=== PATIENT | female | born 1990 | race Caucasian/White ===

== ENCOUNTER 2019-04-06 19:30 | Emergency (ER) | payer OTHER ==
[~2019-04-06] VITALS: Ht 160 cm; Wt 72.6 kg
[~2019-04-06 19:30] MED LIST: BACTROBAN CREAM30 GM TOP; CIPROFLOXACIN500 M1 PO; DIFLUCAN150 MG PO; DOXYCYCLINE 10100 M1 PO; FLEXERIL PO; HYDROCODON-ACE1 EAC7 PO; HYDROCODONE-AP1 EAC6 PO; IBUPROFEN 800800 M1 PO; KEFLEX500 MG PO; NOHOMEMEDICATIONS; NORCO 5-325 TA1 EACH PO; NYSTATIN1 EA10 MC; PHENERGAN 25 MG25 M1 PO; TRINATE TABLET1 TAB PO; ZOFRAN ODT4 MG PO; ZPAK PO
[2019-04-06] MEDS ORDERED: NABUMETONE 750750 M1 PO (20:39)
[2019-04-06] MEDS ORDERED: AUGMENTIN 875-1 EACH PO (20:39)
[2019-04-06 21:04] VITALS: BP 134/83
== END 2019-04-06 21:04 | disposition home or self-care (01) ==
LOC: M.ERS 19:30
DX: J02.0 Streptococcal pharyngitis (principal); Z98.890 Other specified postprocedural states

== ENCOUNTER 2020-02-27 13:08 | Emergency (ER) | payer OTHER ==
[~2020-02-27] VITALS: Ht 157.5 cm; Wt 63.5 kg
[~2020-02-27 13:08] MED LIST changes: +AUGMENTIN 875-1 EACH PO; +NABUMETONE 750750 M1 PO
[2020-02-27 14:59] VITALS: BP 125/70
== END 2020-02-27 15:00 | disposition home or self-care (01) ==
LOC: M.ERS 13:08
DX: S61.211A Laceration without foreign body of left index finger without damage to nail, initial encounter (principal); Z90.49 Acquired absence of other specified parts of digestive tract; W26.8XXA Contact with other sharp object(s), not elsewhere classified, initial encounter; Y93.89 Activity, other specified; Y92.89 Other specified places as the place of occurrence of the external cause; Y99.8 Other external cause status

== ENCOUNTER 2020-03-09 09:59 | Emergency (ER) | payer OTHER ==
[~2020-03-09] VITALS: Ht 157.5 cm; Wt 65.8 kg
[2020-03-09 10:05] VITALS: BP 122/78
== END 2020-03-09 10:25 | disposition home or self-care (01) ==
LOC: M.ERS 09:59
DX: S61.211D Laceration without foreign body of left index finger without damage to nail, subsequent encounter (principal); Z90.89 Acquired absence of other organs; X58.XXXD Exposure to other specified factors, subsequent encounter

== ENCOUNTER 2021-04-17 09:32 | Emergency (ER) | payer OTHER ==
[~2021-04-17] VITALS: Ht 157.5 cm; Wt 59.0 kg
[2021-04-17 10:12] LABS: HEMATOCRIT 40.4 % (37.0-47.0); HEMOGLOBIN 12.9 gm/dL (12.0-15.0); MCH 30.1 pg (26.0-34.0); MPV 8.6 fl. (7.2-11.1); NUCLEATED RBCS 0 /100WBC; PLATELET COUNT* 289 thou/uL (150-400); RDW-CV 13.3 % (10.5-14.5); WBC 13.3 thou/uL (4.0-11.0)
[2021-04-17 10:23] LABS: CALCIUM 9.1 mg/dL (8.5-10.1); CREATININE 0.7 mg/dL (0.6-1.3); POTASSIUM 4.1 mmol/L (3.5-5.1)
[2021-04-17 10:27] LABS: ALBUMIN 4.5 g/dL (3.4-5.0); TOTAL BILIRUBIN 0.4 mg/dL (<0.1-1.0); TOTAL PROTEIN 7.8 g/dL (6.4-8.2)
[2021-04-17 10:51] LABS: ABSOLUTE LYMPHOCYTES 1.2 thou/uL (0.8-5.3); ABSOLUTE MONOCYTES 0.3 thou/uL (0.0-1.2); ABSOLUTE NEUTROPHILS 11.8 thou/uL (1.6-8.1); PLATELET ESTIMATE ADEQUATE
[2021-04-17] MEDS ORDERED: BENTYL 10 MG CA10 M1 PO (12:22)
[2021-04-17] MEDS ORDERED: ZOFRAN ODT4 MG DISSOLVE (12:22)
[2021-04-17 12:31] VITALS: BP 115/64
== END 2021-04-17 12:33 | disposition home or self-care (01) ==
LOC: M.ERS 09:32
PROVIDERS: Emergency Medicine Emergency Medical Services
DX: R10.33 Periumbilical pain (principal); R11.2 Nausea with vomiting, unspecified; R19.7 Diarrhea, unspecified; Z90.89 Acquired absence of other organs; Z98.890 Other specified postprocedural states